=== PATIENT | male | born 1965 | race Caucasian/White ===

== ENCOUNTER 2016-10-17 13:48 | Emergency (ER) | payer OTHER ==
[~2016-10-17] VITALS: Ht 172.7 cm; Wt 86.2 kg
[~2016-10-17 13:48] MED LIST: AUGMENTIN 500M500 MG PO; DIAZEPAM5 M1 PO; DIAZEPAM5 MG PO; DULOXETINE HCL60 MG PO; FIORICET 325 MG1 TAB PO; FLEXERIL10 MG PO; GABAPENTIN300 MG PO; IBUPROFEN600 M1 PO; MARI INH; MIRTAZAPINE15 M2 PO; NAPROSYN500 M1 PO; NEURONTIN300 MG PO; PERCOCET 325 MG1 TA2 PO; ULTRAM50 M1 PO
--- NOTE | 2016-10-17 13:56 | ED ANKLE/FOOT INJURY COMPLAINT ---
History of Present Illness General Chief Complaint: Foot or Ankle Injury Stated Complaint: ANKLE INJ Vital Signs & Intake/Output Vital Signs & Intake/Output Vital Signs Date Time Temp Pulse Resp B/P Pulse O2 O2 Flow FiO2 Ox Delivery Rate 10/17 1351 96.9 108 20 135/90 93 Room Air Allergies Coded Allergies: NO KNOWN ALLERGIES (10/17/16) Reconcile Medications Cannabis (Marijuana Oil) (Unknown Strength) AMP (Unknown Dose) INH AD PRN UNKNOWN (Reported) Diazepam 5 MG TABLET 1 TAB PO QPM PRN MUSCLE SPASMS (Reported) Duloxetine HCl 60 MG CAPSULE.DR 1 CAP PO DAILY neuropathy (Reported) Mirtazapine 15 MG TABLET 1 TAB PO QPM SLEEP (Reported) Naproxen (Naprosyn) 500 MG TABLET 1 TAB PO BID pain and inflammation Triage Note: TRIAGE: PT TO ER C/C R ANKLE PAIN S/P INJURY APPROX 11:30. STATES HE INJURED SAME WHEN PULLING A SCOOTER ON/OFF THE DECK OF A SHED. STATES HE TWISTED IT WRONG AND FELT SHARP PAIN. TRIED REST/ELEVATION WITH NO REAL RELIEF IN PAIN. REFUSES OFFERED PAIN MEDS AT TRIAGE. 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 History of MRSA: No History of VRE: No History of CDIFF: No Tetanus Vaccine: 03/27/16 Surgical History Surgical History: appendectomy, NECK SURG X2 BACK SURG X3 R HAND/ANKLE/KNEE SURG L ELBOW SURG X2 HEAD FX Psychosocial History Who do you live with Father Services at Home None What is your primary language Malay Tobacco Use: Current Daily Use Daily Tobacco Use Amount/Type: => 5 Cigarettes daily ETOH Use: occasional use Illicit Drug Use: marijuana, MARIJUANA CARD Departure Departure Condition: Stable Referrals: GRESHAM URSULA CHERRY (PCP/Family) Departure Forms: Customer Survey General Discharge Information
--- NOTE | 2016-10-17 13:58 | ED ANKLE/FOOT INJURY COMPLAINT ---
History of Present Illness General Chief Complaint: Foot or Ankle Injury Stated Complaint: ANKLE INJ Source: patient Exam Limitations: no limitations Vital Signs & Intake/Output Vital Signs & Intake/Output Vital Signs Date Time Temp Pulse Resp B/P Pulse O2 O2 Flow FiO2 Ox Delivery Rate 10/17 1530 97.0 87 20 130/88 95 Room Air Room Air 10/17 1351 96.9 108 20 135/90 93 Room Air ED Intake and Output 10/18 0000 10/17 1200 Intake Total Output Total Balance Patient 190 lb Weight Allergies Coded Allergies: NO KNOWN ALLERGIES (10/17/16) Reconcile Medications Cannabis (Marijuana Oil) (Unknown Strength) AMP (Unknown Dose) INH AD PRN UNKNOWN (Reported) Diazepam 5 MG TABLET 1 TAB PO QPM PRN MUSCLE SPASMS (Reported) Duloxetine HCl 60 MG CAPSULE.DR 1 CAP PO DAILY neuropathy (Reported) Hydrocodone/Acetaminophen (Hydrocodon-Acetaminophen 5-325) 5 MG-325 MG TABLET 1-2 TAB PO Q4-6 PRN PRN pain Meloxicam (Mobic) 15 MG TABLET 1 TAB PO DAILY pain Mirtazapine 15 MG TABLET 1 TAB PO QPM SLEEP (Reported) Triage Note: TRIAGE: PT TO ER C/C R ANKLE PAIN S/P INJURY APPROX 11:30. STATES HE INJURED SAME WHEN PULLING A SCOOTER ON/OFF THE DECK OF A SHED. STATES HE TWISTED IT WRONG AND FELT SHARP PAIN. TRIED REST/ELEVATION WITH NO REAL RELIEF IN PAIN. REFUSES OFFERED PAIN MEDS AT TRIAGE. Triage Nurses Notes Reviewed? yes Occurred: just prior to arrival Duration: hour(s):, constant, continues in ED Timing: recent history Severity: moderate, severe Pain/Injury Location: Right: Ankle. No Modifying Factors: none HPI: 51-year-old male comes into emergency room with complaints of right ankle pain. Patient reports that the symptoms have been going on for the past few hours. Sharp throbbing pain. Continuous. Nonradiating. Limited range of motion. Denies any other associated symptoms. Patient reports that he was lifting something and twisted it. ([place]) Past History Travel History Traveled to [place] past 21 day No Medical History Any Pertinent Medical History? 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 No ([place]) Review of Systems Review of Systems Constitutional: Reports: no symptoms. EENTM: Reports: no symptoms. Respiratory: Reports: no symptoms. Cardiovascular: Reports: no symptoms. GI: Reports: no symptoms. Genitourinary: Reports: no symptoms. Musculoskeletal: Reports: see HPI. Skin: Reports: no symptoms. Neurological/Psychological: Reports: no symptoms. Hematologic/Endocrine: Reports: no symptoms. Immunologic/Allergic: Reports: no symptoms. All Other Systems: Reviewed and Negative ([place]) Physical Exam Physical Exam General Appearance: well developed/nourished, mild distress Head: atraumatic Eyes: Bilateral: normal appearance. Ears, Nose, Throat: normal ENT inspection, hearing grossly normal Neck: normal inspection Cardiovascular/Respiratory: no respiratory distress Back: normal inspection Leg/Knee/Thigh Left: normal range of motion Leg/Knee/Thigh Right: normal range of motion Ankle Right: soft tissue tenderness, limited range of motion Foot Right: normal inspection, normal range of motion Neuro/Vascular: normal motor function Tendon: normal tendon function Psychiatric: awake, alert, oriented x 3 Skin: intact, normal color, warm/dry ([place]) Progress Differential Diagnosis: cellulitis, fracture, dislocation, sprain, contusion Plan of Care: Orders Procedure Date/time Status XRY-ANKLE 3 OR MORE VIEWS R 10/17 1357 Active Diagnostic Imaging: Viewed by Me: Radiology Read. Discussed w/RAD: Radiology Read. Radiology Impression: SERVICE DATE: 10/17/16-1358 EXAM TYPE: RAD - XRY-ANKLE 3 OR MORE VIEWS R EXAMINATION: XR ANKLE, RIGHT CLINICAL INFORMATION: Right ankle pain following twisting injury. COMPARISON: Plain films of the right ankle 10/17. TECHNIQUE: AP, lateral, and mortise views of the right ankle. FINDINGS: Redemonstrated is a focal lucency along the talar dome, corresponding to a previously described osteochondral lesion of the talus. No acute fracture or dislocation of the right ankle is identified. The ankle mortise is intact. There is no significant anterior or posterior ankle joint effusion. Incidental note is made of an os trigonum posterior to the talus. IMPRESSION: No acute fracture or dislocation of the right ankle. The ankle mortise is intact. Redemonstrated is an osteochondral lesion along the talar dome. DICTATED BY: PHILLY ZULETA MD DATE/TIME DICTATED:10/17/161450 CORE STRIPPER:NICOLE DATE/TIME TRANSCRIBED:10/17/161450 ([place]) Departure Departure Disposition: HOME OR SELF CARE Condition: Stable Clinical Impression Primary Impression: Right ankle sprain Referrals: CYNTHIA CHERRY,BRITTANY GRESHAM MD,URSULA Gonzales (PCP/Family) Additional Instructions: Ice. Rest. Motrin for pain. Elevation. Follow-up with orthopedic doctor provided if not better in 3-5 days. If symptoms do not improve you'll require further evaluation with possible repeat x-rays as well as evaluation by fire management specialist. Sprains can last anywhere from days to weeks. No high impact running or jumping if you have an ankle sprain or any type of lower extremity sprain. Return to normal activity only after symptoms have resolved. Please go over all results of today's visit with your primary care doctor. Contact your primary care doctor to let them know you were here in the emergency room. There may be nonspecific findings which may not be related to your visit today here in the emergency room but may require further evaluation and chronic monitoring by your primary care doctor. If you had a laceration today the chance of foreign body always remains. You should follow-up with your primary care doctor for recheck in 3-5 days for a wound check. If you had an x-ray done there is a chance that a fracture could have been missed on initial read and you should follow-up with your primary care doctor for repeat x-rays if symptoms persist. If your blood pressure was elevated here in the emergency room please have rechecked by her primary care doctor within the next 48 hours by your primary care doctor. If you were prescribed a narcotic here in the emergency room or any type of controlled substances you're not allowed to drive while taking this medication or operate any type of heavy machinery. Narcotics can make you feel lightheaded dizziness nausea and can cause constipation. You may need to curing pickling packer a stool softener. Thank you for choosing [facility] emergency room. Please return to the emergency room immediately if you have any other concerns worsening of symptoms. Departure Forms: Customer Survey General Discharge Information Prescriptions: Current Visit Scripts Meloxicam (Mobic) 1 TAB PO DAILY #15 TAB Hydrocodone/Acetaminophen (Hydrocodon-Acetaminophen 5-325) 1-2 TAB PO Q4-6 PRN PRN pain #10 TAB Comments 10/17/2016 3:34:02 PM Patient clinically looks well. Patient is nontoxic-appearing. Patient is in no apparent distress. Ice. Rest. Elevation. Return if any other concerns. No evidence of acute fracture. ([place]) PA/MAINTENANCE EQUIPMENT OPERATOR Co-Sign Statement Statement: ED Attending supervision documentation- [] I saw and evaluated the patient. I have also reviewed all the pertinent lab results and diagnostic results. I agree with the findings and the plan of care as documented in the PA's/MAINTENANCE EQUIPMENT OPERATOR's documentation. [X] I have reviewed the ED Record and agree with the PA's/MAINTENANCE EQUIPMENT OPERATOR's documentation. [] Additions or exceptions (if any) to the PAs/MAINTENANCE EQUIPMENT OPERATOR's note and plan are summarized below: [] (CAROLYN CHERRY,JARRED)
--- NOTE | 2016-10-17 14:58 | RADIOLOGY REPORT ---
EXAMINATION: XR ANKLE, RIGHT CLINICAL INFORMATION: Right ankle pain following twisting injury. COMPARISON: Plain films of the right ankle 10/18/2015. TECHNIQUE: AP, lateral, and mortise views of the right ankle. FINDINGS: Redemonstrated is a focal lucency along the talar dome, corresponding to a previously described osteochondral lesion of the talus. No acute fracture or dislocation of the right ankle is identified. The ankle mortise is intact. There is no significant anterior or posterior ankle joint effusion. Incidental note is made of an os trigonum posterior to the talus. IMPRESSION: No acute fracture or dislocation of the right ankle. The ankle mortise is intact. Redemonstrated is an osteochondral lesion along the talar dome.
[2016-10-17] MEDS ORDERED: HYDROCODON-ACE1 EAC2 PO (15:10)
[2016-10-17] MEDS ORDERED: MOBIC15 M1 PO (15:10)
[2016-10-17 15:30] VITALS: BP 130/88
[2017-01-29] MEDS ORDERED: PERCOCET 5-3251 EACH PO (17:33)
== END 2016-10-17 15:32 ==
LOC: ERH 13:48
DX: S93.401A Sprain of unspecified ligament of right ankle, initial encounter (principal); X50.9XXA Other and unspecified overexertion or strenuous movements or postures, initial encounter; Y93.89 Activity, other specified; Y92.9 Unspecified place or not applicable
CPT/HCPCS: 73610-RT

== ENCOUNTER 2016-12-12 02:31 | Emergency (ER) | payer OTHER ==
[~2016-12-12] VITALS: Ht 172.7 cm; Wt 86.2 kg
[~2016-12-12 02:31] MED LIST changes: +HYDROCODON-ACE1 EAC2 PO; +MOBIC15 M1 PO
--- NOTE | 2016-12-12 02:49 | ED NECK/BACK PAIN COMPLAINT ---
History of Present Illness General Chief Complaint: Low Back Pain/Injury Stated Complaint: BIBA 10/10 BACK PAIN Source: patient Exam Limitations: no limitations Vital Signs & Intake/Output Vital Signs & Intake/Output Vital Signs Date Time Temp Pulse Resp B/P B/P Pulse O2 O2 Flow FiO2 Mean Ox Delivery Rate 12/13 411 96.0 100 18 118/63 95 Room Air 12/12 410 95.3 12/125 95.3 103 20 121/63 94 Room Air Allergies Coded Allergies: No Known Allergies (12/12/16) Reconcile Medications Cannabis (Marijuana Oil) (Unknown Strength) AMP (Unknown Dose) INH AD PRN UNKNOWN (Reported) Cyclobenzaprine HCl 10 MG TABLET 1 TAB PO 4 TIMES/DAY PRN MUSCLE SPASM Diazepam 5 MG TABLET 1 TAB PO QPM PRN MUSCLE SPASMS (Reported) Duloxetine HCl 60 MG CAPSULE.DR 1 CAP PO DAILY neuropathy (Reported) Hydrocodone/Acetaminophen (Hydrocodon-Acetaminophen 5-325) 5 MG-325 MG TABLET 1-2 TAB PO Q4-6 PRN PRN pain Ibuprofen 800 MG TABLET 1 TAB PO TID PRN pain Meloxicam (Mobic) 15 MG TABLET 1 TAB PO DAILY pain Mirtazapine 15 MG TABLET 1 TAB PO QPM SLEEP (Reported) Oxycodone HCl/Acetaminophen (Percocet 5-325 MG Tablet) 5 MG-325 MG TABLET 1 TAB PO 4XDP PRN PAIN TEN...[id number] Triage Note: TRIAGE: ESTHELA FROM HOME REPORTING 10/10 BACK PAIN BETWEEN SHOULDER BLADES, MET THE AMBULANCE AT THE BOTTOM OF THE [address]IVE[address]. PATIENT REPORTS HX OF CHRONIC BACK PAIN. ADMITS TO ETOH TONIGHT. PATIENT INTERMITTENTLY SLEEPING IN WHEELCHAIR. Triage Nurses Notes Reviewed? yes Onset: Gradual Duration: week(s):, waxing and waning Timing: recent history Quality/Severity: moderate Location: T-spine Radiation: none Context: "I've had spinal surgery many years ago." Method of Injury: "chronic pain" Loss of Consciousness: no loss of consciousness Modifying Factors: rest Associated Symptoms: muscle spasm HPI: 51-year-old gentleman with a history of chronic back pain, status post spinal surgery many years ago, presents with diffuse midthoracic back pain worse with movement. He states that he went fishing yesterday. He says, "I casted several times but was too much for me and so I stop." He states he is able to ambulate. He's been taking Naprosyn without effect. He notes that his muscles feel tight. The pain does not radiate. He has no fever chills chest pain shortness of breath or syncopal type symptoms. He is otherwise well. Past History Travel History Traveled to [place] past 21 day No Medical History Any Pertinent Medical History? 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 No Review of Systems Review of Systems Constitutional: Reports: no symptoms. Eyes: Reports: no symptoms. Ears, Nose, Throat, Mouth: Reports: no symptoms. Respiratory: Reports: no symptoms. Cardiovascular: Reports: no symptoms. Gastrointestinal/Abdominal: Reports: no symptoms. Musculoskeletal: Reports: no symptoms. Skin: Reports: no symptoms. Neurological/Psychological: Reports: no symptoms. All Other Systems: Reviewed and Negative Physical Exam Physical Exam General Appearance: well developed/nourished, mild distress Head: atraumatic Eyes: Bilateral: PERRL, EOMI. Ears, Nose, Throat, Mouth: hearing grossly normal Neck: normal inspection, supple, muscle spasm, paraspinous muscle tender Respiratory: normal breath sounds Cardiovascular: regular rate/rhythm Gastrointestinal: soft, non-tender Back: normal inspection, muscle spasm, no vertebral tenderness Extremities: normal range of motion Neurologic/Psych: awake, alert, oriented x 3, normal mood/affect Skin: intact, normal color, warm/dry Comments: DTRs, light touch, strength in his lower and upper extremities are normal. Progress Differential Diagnosis: herniated disc, myofascial strain, sciatica Plan of Care: Patient given Percocet Flexeril ibuprofen. I encouraged close follow-up with his PMD. Departure Departure Disposition: HOME OR SELF CARE Condition: Stable Clinical Impression Primary Impression: Back pain Referrals: GRESHAM URSULA CHERRY (PCP/Family) Departure Forms: Customer Survey General Discharge Information Prescriptions: Current Visit Scripts Cyclobenzaprine HCl 1 TAB PO 4 TIMES/DAY PRN MUSCLE SPASM #30 TAB Ref 1 Oxycodone HCl/Acetaminophen (Percocet 5-325 MG Tablet) 1 TAB PO 4XDP PRN PAIN #10 TAB TEN...[id number] Ibuprofen 1 TAB PO TID PRN pain #30 TAB
[2016-12-12] MEDS ORDERED: PERCOCET 5-3251 EACH PO (03:05)
[2016-12-12] MEDS ORDERED: CYCLOBENZAPRINE10 M1 PO (03:05)
[2016-12-12] MEDS ORDERED: IBUPROFEN800 M1 PO (03:05)
[2016-12-12 04:12] VITALS: BP 118/63
[2017-01-29] MEDS ORDERED: PERCOCET 5-3251 EACH PO (17:33)
== END 2016-12-12 04:15 ==
LOC: ERH 02:31
DX: M54.9 Dorsalgia, unspecified (principal)

== ENCOUNTER 2018-01-26 10:07 | Emergency (ER) | payer OTHER ==
[~2018-01-26] VITALS: Ht 172.7 cm; Wt 86.2 kg
[~2018-01-26 10:07] MED LIST changes: +CYCLOBENZAPRINE10 M1 PO; +IBUPROFEN800 M1 PO; +PERCOCET 5-3251 EACH PO
--- NOTE | 2018-01-26 10:51 | ED NECK/BACK PAIN COMPLAINT ---
History of Present Illness General Chief Complaint: Low Back Pain/Injury Stated Complaint: LOWER BACK PAIN X 6 DAYS Source: patient Exam Limitations: no limitations Vital Signs & Intake/Output Vital Signs & Intake/Output Vital Signs Date Time Temp Pulse Resp B/P B/P Pulse O2 O2 Flow FiO2 Mean Ox Delivery Rate 01/26 1218 98.0 86 18 150/101 98 Room Air 01/26 1106 94 01/26 1016 152/98 01/26 1011 97.7 113 20 167/110 96 Room Air Allergies Coded Allergies: No Known Allergies (01/26/18) Reconcile Medications Cannabis (Marijuana Oil) (Unknown Strength) AMP (Unknown Dose) INH AD PRN UNKNOWN (Reported) Cyclobenzaprine HCl 10 MG TABLET 1 TAB PO 4 TIMES/DAY PRN MUSCLE SPASM Diazepam 5 MG TABLET 1 TAB PO QPM PRN MUSCLE SPASMS (Reported) Duloxetine HCl 60 MG CAPSULE.DR 1 CAP PO DAILY neuropathy (Reported) Hydrocodone/Acetaminophen (Hydrocodon-Acetaminophen 5-325) 5 MG-325 MG TABLET 1-2 TAB PO Q4-6 PRN PRN pain Ibuprofen 800 MG TABLET 1 TAB PO TID PRN pain Meloxicam (Mobic) 15 MG TABLET 1 TAB PO DAILY pain Mirtazapine 15 MG TABLET 1 TAB PO QPM SLEEP (Reported) Oxycodone HCl/Acetaminophen (Percocet 5-325 MG Tablet) 5 MG-325 MG TABLET 1 TAB PO 4XDP PRN PAIN TEN...[id number] Oxycodone HCl/Acetaminophen (Percocet 5-325 MG Tablet) 5 MG-325 MG TABLET 1 TAB PO BID PAIN Triage Note: TRIAGE: PT TO ER C/C LOW BACK PAIN SINCE SUNDAY, CONSTANT SINCE ONSET. RADIATES DOWN R LEG. HAS HX CHRONIC BACK PAINS AND SURGERIES BUT STATES THIS FEELS DIFFERENT. PT HYPERTENSIVE AND TACHYCARDIC AT TRIAGE WITH HR 112 AND B/P READINGS OF 167/110 AUTO AND 152/98 MANUAL. Triage Nurses Notes Reviewed? yes HPI: Patient presents for evaluation of a painful lump on the spine that he noted possibly 8 months ago. Patient states that initially it seemed to be off to the side of the spine but feels it may have moved over the spine recently. He states the pain worsens with raising his arms over his head. He denies any fever or cold symptoms currently. The lump was gradual in onset but has been constant for possibly months. Past History Travel History Traveled to [place] past 21 day No Medical History Any Pertinent Medical History? 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 No Review of Systems Review of Systems Constitutional: Reports: no symptoms. Eyes: Reports: no symptoms. Ears, Nose, Throat, Mouth: Reports: no symptoms. Respiratory: Reports: no symptoms. Cardiovascular: Reports: no symptoms. Gastrointestinal/Abdominal: Reports: no symptoms. Musculoskeletal: Reports: no symptoms. Skin: Reports: see HPI. Neurological/Psychological: Reports: no symptoms. All Other Systems: Reviewed and Negative Physical Exam Physical Exam Neck: see below Comments: Gen.: Well-nourished, well-developed, no acute respiratory distress. Head: Normocephalic, atraumatic. Eyes: Normal inspection bilaterally Ears: Normal inspection bilaterally Nose: Normal inspection Throat/mouth : Moist mucosa Neck: Supple, full range of motion, no goiter Lungs: Quiet respirations Back: Normal range of motion, firm nodule over the lumbar spine, old surgical spine scar. Extremities: Normal range of motion grossly, no cyanosis clubbing or edema of the upper extremities Neurologic: Cranial nerves grossly intact, speech is clear Skin: warm and dry Psychiatric: Calm, cooperative, no apparent delusions or hallucinations Core Measures CVA/TIA Diagnosis: No Progress Differential Diagnosis: herniated disc, ABSCESS, CYST, SCAR FORMATION, LYMPHADENOPATHY Plan of Care: Orders Procedure Date/time Status US-SUPERFICIAL IMAGING EXTREMI 01/26 1051 Active Diagnostic Imaging: Discussed w/RAD: Ultrasound. Radiology Impression: PATIENT: FRANCIS REESE PRESENT AGE: 52 PATIENT ACCOUNT NO: [id number] : 63 LOCATION: [facility] ORDERING PHYSICIAN: Vargas Cristobal MD SERVICE DATE: 01/26/18 EXAM TYPE: US - US -SUPERFICIAL IMAGING EXTREMI EXAMINATION: US SUPERFICIAL IMAGING, EXTREMITY CLINICAL INFORMATION: Lump over lumbar spine. Presumptive diagnosis of cutaneous abscess, cyst, lymph node, protruding lumbar disc. History of posterior spinal fusion L3-S1. COMPARISON: CT scan of the lumbar spine dated 05/13/2012. TECHNIQUE: Focused ultrasound of the palpable lump in the mid lower back was performed. FINDINGS: Corresponding to the midline palpable lump in the mid lower back region, there is a small amount of cutaneous edema. There is also a superficial subcutaneous amorphous mixed hypo and hyperechoic collection, measuring 1.1 x 0.3 x 1.3 cm. With color Doppler imaging, no significant hyperemia is demonstrated. IMPRESSION: Small complex fluid collection is seen in region of palpable lump over the midline of the lower back. This is a nonspecific finding and may be related to a small phlegmonous collection, focal inflammation, or small amount of subcutaneous hemorrhage. No drainable abscess collection is seen. Close clinical correlation is requested with follow-up as clinically appropriate. DICTATED BY: Alondra Madrigal MD DATE/TIME DICTATED:1211 AUTOMATIC CASTING MACHINE OPERATOR:NICOLE DATE/TIME TRANSCRIBED:01/26/181211 CONFIDENTIAL, DO NOT COPY WITHOUT APPROPRIATE AUTHORIZATION. <Electronically signed in Other Vendor System> SIGNED BY: Alondra Madrigal MD 01/26/18 1225 Comments: 01/26/2018 12:37:20 PM I have updated francis on his test results. I will prescribe an anti-inflammatory for the lump as well as an anti-inflammatory to help with his chronic back pain (unrelated to the lump). He will see his painter drum on Sunday. Departure Departure Disposition: HOME OR SELF CARE Condition: Stable Clinical Impression Primary Impression: Phlegmon Referrals: Rupert Ramirez MD (PCP/Family) Additional Instructions: Your ultrasound shows a small inflammatory mass. This does not appear to be an abscess in that this point does not require any specific intervention. Please monitor for any changes over the next few weeks. follow-up with your primary care physician for reevaluation if the lump does not resolve spontaneously. At that point you might require referral to a general surgeon for removal of the lump. Otherwise return if any concerns or sudden worsening. Departure Forms: Customer Survey General Discharge Information Prescriptions: Current Visit Scripts Diclofenac Potassium 1 TAB PO TID PRN PAIN #30 TAB Cyclobenzaprine HCl 1 TAB PO TID #30 TAB
[2018-01-26 12:18] VITALS: BP 150/101
--- NOTE | 2018-01-26 12:25 | ULTRASOUND REPORT ---
EXAMINATION: US SUPERFICIAL IMAGING, EXTREMITY CLINICAL INFORMATION: Lump over lumbar spine. Presumptive diagnosis of cutaneous abscess, cyst, lymph node, protruding lumbar disc. History of posterior spinal fusion L3-S1. COMPARISON: CT scan of the lumbar spine dated 05/13/2012. TECHNIQUE: Focused ultrasound of the palpable lump in the mid lower back was performed. FINDINGS: Corresponding to the midline palpable lump in the mid lower back region, there is a small amount of cutaneous edema. There is also a superficial subcutaneous amorphous mixed hypo and hyperechoic collection, measuring 1.1 x 0.3 x 1.3 cm. With color Doppler imaging, no significant hyperemia is demonstrated. IMPRESSION: Small complex fluid collection is seen in region of palpable lump over the midline of the lower back. This is a nonspecific finding and may be related to a small phlegmonous collection, focal inflammation, or small amount of subcutaneous hemorrhage. No drainable abscess collection is seen. Close clinical correlation is requested with follow-up as clinically appropriate.
[2018-01-26] MEDS ORDERED: DICLOFENAC POTA50 M1 PO (12:39)
[2018-01-26] MEDS ORDERED: CYCLOBENZAPRINE10 M1 PO (12:39)
== END 2018-01-26 12:48 ==
LOC: ERH 10:07
DX: L02.212 Cutaneous abscess of back [any part, except buttock and flank] (principal)
CPT/HCPCS: 76881